=== PATIENT | male | born 1985 | race African-American/Black ===

== ENCOUNTER 2021-11-15 08:14 | Emergency (ER) | payer OTHER ==
[~2021-11-15] VITALS: Ht 167.6 cm; Wt 90.0 kg
[2021-11-15 08:36] VITALS: BP 121/75
[2021-11-15] MEDS ORDERED: IBUP800T27 PO (09:55)
== END 2021-11-15 10:03 | disposition home or self-care (01) ==
LOC: ER 08:14
DX: S93.601A Unspecified sprain of right foot, initial encounter (principal); W10.8XXA Fall (on) (from) other stairs and steps, initial encounter; Y93.89 Activity, other specified; Y92.89 Other specified places as the place of occurrence of the external cause; Y99.8 Other external cause status
CPT/HCPCS: 73610; 73630

== ENCOUNTER 2024-09-26 07:27 | Emergency (ER) | payer MEDICAID, OTHER ==
[~2024-09-26] VITALS: Ht 167.6 cm; Wt 90.0 kg
[~2024-09-26 07:27] MED LIST: IBUP-1456 PO
--- NOTE | 2024-09-26 08:21 | ED.PDOC ---
Mult. trauma (HPI) HPI Comments 39 y/o M, ROMAINE, presents to the ED for CC of dog bite. EMS reports, patient is coming from home where he was in his back yard when his dog came up to him bitting him in the face. Patient has a liner laceration to his upper lip; bleeding is controlled at this time. Patient denies head injury, open wounds, or abrasions. No other symptoms or modifiers present at this time. Chief Complaint: Animal Bite Time Seen by MD: 08:15 Primary Care Provider: NONE Reviewed notes: Nurses Notes, Manager Workers Compensation Notes, Medications, Allergies Allergies: Coded Allergies: NO KNOWN ALLERGIES (Unverified , 02/18/19) Home Meds Active Scripts Ibuprofen Micronized (MOTRIN TABLET) 600 Mg Tb, 600 MG PO TID PRN for 5 Days, #15 TAB *Black box warning-NSAIDS can increase risk of MS & hypertension, GI irritation, ulceration, bleed, perferation. Do not use post cardiac surgery. Use short duration/lowest effective dose. Prov:GLORIA RIVERA MD 09/26/24 Clindamycin Hcl (Clindamycin Hcl) 300 Mg Cap, 1 CAP PO TID for 10 Days, #30 CAP Prov:GLORIA RIVERA MD 09/26/24 Ibuprofen (Ibuprofen) 800 Mg Tab, 800 MG PO TID PRN, #30 TAB Prov:ADRIANA DODSON 11/15/21 Information Source: Patient, Emergency Med Personnel Mode of Arrival: EMS Severity: Moderate Timing: Minutes Duration: Since onset Prehospital treatment: None Location: Face Location of laceration: Mouth Mechanism: Other (DOG BITE) Associated signs and symtoms: None Past Medical History PAST MEDICAL HISTORY: Denies Surgical History: Denies all surgeries Family History Family History: Reviewed,noncontributory to illness Social History Smoker: Cigarettes, Less Than 1 Pack/Day Alcohol: Rarely Drugs: Marijuana Lives In: Home Constitutional: denies: chills, diaphoresis, fatigue, fever, malaise, sweats, weakness, others EENTM: denies: blurred vision, double vision, ear bleeding, ear discharge, ear drainage, ear pain, ear ringing, eye pain, eye redness, hearing loss, mouth pain, mouth swelling, nasal discharge, nose bleeding, nose congestion, nose pain, photophobia, tearing, throat pain, throat swelling, voice changes, others Respiratory: denies: cough, hemoptysis, orthopnea, SOB at rest, shortness of breath, SOB with excertion, stridor, wheezing, others Cardiovascular: denies: chest pain, dizzy spells, diaphoresis, Dyspnea on exertion, edema, irregular heart beat, left arm pain, lightheadedness, palpitations, PND, syncope, others Gastrointestinal: denies: abdomen distended, abdominal pain, blood streaked bowels, constipated, diarrhea, dysphagia, difficulty swallowing, hematemesis, melena, nausea, poor appetite, poor fluid intake, rectal bleeding, rectal pain, vomiting, others Genitourinary: denies: burning, dysuria, flank pain, frequency, hematuria, incontinence, penile discharge, penile sore, pain, testicle pain, testicle s welling, urgency, others Neurological: denies: dizziness, fainting, headache, left sided numbness, left sided weakness, numbness, paresthesia, pre-existing deficit, right sided numbness, right sided weakness, seizure, speech problems, tingling, tremors, weakness, others Musculoskeletal: denies: back pain, gout, joint pain, joint swelling, muscle pain, muscle stiffness, neck pain, others Integumetry: reports: laceration; denies: bruises, change in color, change in hair/nails, dryness, lesions, lumps, rash, wounds, others Allergic/Immunocompromised: denies: Difficulty Healing, Frequent Infections, Hives, Itching, others Hematologic/Lymphatic: denies: anemia, blood clots, easy bleeding, easy bruising, swollen glands, others Endocrine: denies: excessive hunger, excessive sweating, excessive thirst, excessive urination, flushing, intolerance to cold, intolerance to heat, unexplained weight gain, unexplained weight loss, others Psychiatric: denies: anxiety, bipolar disorder, depression, hopeless, panic disorder, schizophrenia, sleepless, suicidal, others All Other Systems: Reviewed and Negative Physical Exam General Appearance: Moderate Distress HEENT: Normal ENT Inspection, Pharynx Normal, TMs Normal Neck: Full Range of Motion, Non-Tender, Normal, Normal Inspection Respiratory: Chest Non-Tender, Lungs Clear, No Accessory Muscle Use, No Respiratory Distress, Normal Breath Sounds Cardiovascular: No Edema, No JVD, No Murmur, No Gallop, Normal Peripheral Pul ses, Regular Rate/Rhythm Breast Exam: Deferred Gastrointestinal: No Organomegaly, Non Tender, No Pulsatile Mass, Normal Bowel Sounds, Soft Genitalia: Deferred Pelvic: Deferred Rectal: Deferred Extremities: No calf tenderness, Normal inspection, Normal range of motion, Non-tender, No pedal edema Musculoskeletal : Apperance: Normal Neurologic: Alert, No Motor Deficits, No Sensory Deficits Cerebellar Function: NOT DONE Reflexes: NOT DONE Skin: Lacerations (Upper lip) Lymphatic: No Adenopathy Was a procedure done? Was a procedure done?: Yes Sedation Sedation?: No Laceration Repair : Location Upper lip Length 3 cm Anesthetic: Lidocaine Laceration Repair Prep: Saline, Betadine Laceration Repair Wound Comple: epidermis/dermis repair Laceration Repair: Number of sutures (8) Risks, benefits, and alternati: Yes Differential Diagnosis Multiple Trauma: Laceration X-Ray, Labs, Meds, VS Vital Signs Date Time Temp Pulse Resp B/P (MAP) Pulse Ox O2 Delivery O2 Flow Rate FiO2 09/26/24 09:30 97.7 62 16 140/96 (111) 97 97.7 09/26/24 08:06 73 17 99 Room Air 09/26/24 08:06 98.0 73 16 137/89 (105) 99 98.0 09/26/24 07:33 98.3 81 18 139/87 (104) 98 98.3 Current Medications Medications (Trade) Dose Ordered Sig/Alcon Route Start Time Stop Time Status Last Admin Ceftriaxone Sodium (Rocephin) 1,000 mg ONCE ONCE IM 09/26/24 08:30 09/26/24 08:31 DC 09/26/24 09:23 Ketorolac Tromethamine (Toradol Injection) 60 mg ONCE ONCE IM 09/26/24 08:30 09/26/24 08:31 DC 09/26/24 09:21 Patient alert. Has been recently bit by dog. It was a straight dog. Vitals stable. Answering all questions. Explained to the patient about getting his rabies vaccine. He will need to follow up regularly for vaccine. Was given tetanus. Was given Rocephin. Patient refused rabies vaccine because it was his own dog immunized. Was given prescription of clindamycin antibiotic. Was told to follow up with his primary care physician. Was told to come back if there is any problem. Time of 1ST Reevaluation: 18:45 Reevaluation 1ST: Unchanged Patient Education/Counseling: Diagnosis, Treatment Family Education/Counseling: No Family Present Departure 1 Departure Time of Disposition: 08:24 Impression: Primary Impression: Laceration Additional Impression: Dog bite Qualified Codes: W54.0XXA - Bitten by dog, initial encounter Disposition: HOME / SELF CARE / HOMELESS Condition: Good e-Prescriptions Ibuprofen Micronized (MOTRIN TABLET) 600 Mg Tb 600 MG PO TID PRN for 5 Days, #15 TAB *Black box warning-NSAIDS can increase risk of MS & hypertension, GI irritation, ulceration, bleed, perferation. Do not use post cardiac surgery. Use short duration/lowest effective dose. Prov: GLORIA RIVERA MD 09/26/24 Clindamycin Hcl (Clindamycin Hcl) 300 Mg Cap 1 CAP PO TID for 10 Days, #30 CAP Prov: GLORIA RIVERA MD 09/26/24 Discharged With: Self Critical Care Note Critical Care Time?: No Stability Stability form required: No Heart Score Heart Score: Heart Score Response (Comments) Value History N/A 0 EKG N/A 0 Age N/A 0 Risk Factors N/A 0 Troponin N/A 0 Total 0 I personally scribed for GLORIA RIVERA MD ([email or web address]) on 09/26/24 at 08:21. Electronically submitted by Shanon Hartmann ([email or web address]). I personally scribed for GLORIA RIVERA MD ([email or web address]) on 09/26/24 at 08:45. Electronically submitted by Shanon Hartmann ([email or web address] GLORIA RIVERA MD Sep 26, 2024 08:21
[2024-09-26] MEDS ORDERED: CLIN1CAP70 PO (08:25)
[2024-09-26] MEDS ORDERED: IBU600T PO (08:25)
[2024-09-26] MEDS ORDERED: RABIES VACCINE (PCEC)/PF 2.5 UNITS IM ONE (08:30)
[2024-09-26] MEDS: LIDOCAINE 1% HCL (LOCAL ANESTH.) INJ 20ML MDV ONE (08:37)
[2024-09-26] MEDS: KETOROLAC TROMETH 60MG/2ML VIAL IM ONE (09:21)
[2024-09-26] MEDS: TETANUS-DIPTH-ACEL PERTUSSIS 0.5ML SYR Tdap IM ONE (09:22)
[2024-09-26] MEDS: cefTRIAXone SOD 1,000 MG VL IM ONE (09:23)
[2024-09-26 09:30] VITALS: BP 140/96; PULSE 62; RESP 16; TEMP 97.7; O2SAT 97
== END 2024-09-26 09:31 | disposition home or self-care (01) ==
LOC: EDBD 07:27 → ER 07:27
DX: S01.511A Laceration without foreign body of lip, initial encounter (principal); W54.0XXA Bitten by dog, initial encounter; Y93.89 Activity, other specified; Y92.096 Garden or yard of other non-institutional residence as the place of occurrence of the external cause; Y99.8 Other external cause status; F17.210 Nicotine dependence, cigarettes, uncomplicated; F10.90 Alcohol use, unspecified, uncomplicated; F12.90 Cannabis use, unspecified, uncomplicated; Z79.899 Other long term (current) drug therapy; Y90.9 Presence of alcohol in blood, level not specified
CPT/HCPCS: 12013; 96372; 99284; J0696; J1885; J2003; 90675; 90715